=== PATIENT | male | born 1980 | race Caucasian/White ===

== ENCOUNTER 2021-03-15 09:52 | Emergency (ER) | payer OTHER ==
[~2021-03-15] VITALS: Ht 185.4 cm; Wt 81.6 kg
[2021-03-15 10:05] VITALS: BP_SYST 120
[2021-03-15] MEDS ORDERED: IBUPROFEN 600 MG TABLET PO ONE (10:30)
[2021-03-15] MEDS ORDERED: NAPR-688 PO ×3 (11:33→12:25)
[2021-03-15] MEDS ORDERED: HYDR-3917 PO ×3 (11:33→12:25)
[2021-03-15 11:35] VITALS: BP_SYST 120
== END 2021-03-15 11:34 | disposition home or self-care (01) ==
LOC: SED 09:52
DX: S16.1XXA Strain of muscle, fascia and tendon at neck level, initial encounter (principal); S29.012A Strain of muscle and tendon of back wall of thorax, initial encounter; Z79.899 Other long term (current) drug therapy; V49.49XA Driver injured in collision with other motor vehicles in traffic accident, initial encounter; Y93.89 Activity, other specified; Y92.89 Other specified places as the place of occurrence of the external cause; Y99.8 Other external cause status
CPT/HCPCS: 72040-TC; 72072-TC; 73030; 99284

== ENCOUNTER 2021-06-16 14:36 | Emergency (ER) | payer OTHER, SELFPAY ==
[~2021-06-16] VITALS: Ht 185.4 cm; Wt 81.6 kg
[2021-06-16 14:36] VITALS: BP_SYST 132
[~2021-06-16 14:36] MED LIST: HYDR-3917 PO; NAPR-688 PO
--- NOTE | 2021-06-16 14:36 | NUR ---
TRIAGED AND LEFT IN TRIAGE ROOM FOR DR BARBER TO EVALUATE
--- NOTE | 2021-06-16 14:40 | NUR ---
PT STATES THAT HE STARTED ON AMOXICILLIN FOR TOOTH INFECTION AND THEN CHANGED TO CLINDAMYCIN BY DENTIST. PT STATES HE TOOK FIRST DOSE YESTERDAY AT NOON, AND TAKEN Q6 SINCE. STATES TODAY WITH SLIGHT SWELLING TO THROAT, FEELS LIKE THROAT IS CLOSING. SPEAKING FULL SENTENCES, NO DISTRESS. SLIGHT SWELLING TO LEFT SIDE OF FACE. PT STATES THAT HE NEED A CROWN TO LEFT LOWER TOOTH BUT TOOTH IS INFECTED.
--- NOTE | 2021-06-16 14:44 | NUR ---
DR BARBER OUT TO TRIAGE ROOM FOR EVALUATION
--- NOTE | 2021-06-16 15:01 | NUR ---
TAKEN TO LABORATORY FOR LAB DRAW
[2021-06-16 15:51] LABS: BASOPHILS % (AUTO) 0.1 % (0.0-2.0); EOSINOPHILS # (AUTO) 0.2 K/uL (0.0-0.4); EOSINOPHILS % (AUTO) 3.3 % (0.0-4.0); HEMATOCRIT 47.6 % (36-54); HEMOGLOBIN 16.8 g/dL (14.0-18.0); LYMPHOCYTES # (AUTO) 1.5 K/uL (1.0-5.5); LYMPHOCYTES % (AUTO) 24.8 % (20.5-51.5); MEAN CORPUSCULAR HEMOGLOBIN 29 pg (27-31); MEAN CORPUSCULAR HGB CONC 35 % (32-36); MEAN CORPUSCULAR VOLUME 83 fL (79.0-98.0); MONOCYTES # (AUTO) 0.6 K/uL (0.0-1.0); MONOCYTES % (AUTO) 9.5 % (1.7-9.3); NEUTROPHILS # (AUTO) 3.8 K/uL (1.8-7.7); NEUTROPHILS % (AUTO) 62.3 % (40.0-70.0); PLATELET COUNT (AUTO) 164 K/uL (130-430); RED BLOOD CELL COUNT(AUTO) 5.75 MIL/uL (4.2-6.2); RED CELL DISTRIBUTION WIDTH 12.8 % (9.0-15.0); WHITE BLOOD COUNT (AUTO) 6.1 K/uL (4.8-10.8)
--- NOTE | 2021-06-16 16:01 | NUR ---
BROUGHT BACK TO BED #2 AND REPORT GIVEN TO PERICO
--- NOTE | 2021-06-16 16:05 | NUR ---
IV PLACED IN THE LEFT AC IN ONE ATTEMPT WITH 20G. CT TO BE DONE ON HIS MOUTH ABCESS.
[2021-06-16 16:09] LABS: CALCIUM 8.9 mg/dL (8.4-11.0); CREATININE 0.89 mg/dL (0.55-1.30); POTASSIUM 4.1 mmol/L (3.5-5.1)
[2021-06-16 16:15] LABS: ALBUMIN 3.9 g/dL (3.4-4.8)
[2021-06-16] MEDS ORDERED: AMOX-426 PO (18:36)
[2021-06-16 18:42] VITALS: BP_SYST 128
--- NOTE | 2021-06-16 18:43 | NUR ---
Patient given written and verbal discharge instructions and verbalizes understanding. ER MD discussed with patient the results and treatment provided. Patient in stable condition. ID arm band removed. IV catheter removed intact and dressing applied, no active bleeding. Rx of AUGMENTIN given. Patient educated on pain management and to follow up with PMD. Pain Scale 0/10. Opportunity for questions provided and answered. Medication side effect fact sheet provided.
== END 2021-06-16 18:42 | disposition home or self-care (01) ==
LOC: SED 14:36
DX: K04.7 Periapical abscess without sinus (principal); Z88.5 Allergy status to narcotic agent; Z79.899 Other long term (current) drug therapy
CPT/HCPCS: 36415; 70487; 76376; 80053; 85025; 99285; Q9967